=== PATIENT | male | born 1985 | race Caucasian/White ===

== ENCOUNTER 2023-08-27 10:51 | Outpatient (CLI) | payer MEDICARE ==
[2023-08-27 13:24] LABS: H. PYLORIS ANTIGEN STL NEGATIVE (Negative)
== END 2023-08-27 11:00 | disposition home or self-care (01) ==
LOC: LAB.N 10:51
PROVIDERS: ATTEND Physician Assistant Medical
DX: R10.13 Epigastric pain (principal)
CPT/HCPCS: 87338

== ENCOUNTER 2023-10-24 08:34 | Outpatient (CLI) | payer MEDICARE ==
[2023-10-24 12:20] LABS: HCT - HEMATOCRIT 40.9 % (42.0-52.0); HGB - HEMOGLOBIN 13.8 g/dL (14.0-18.0); MEAN CORPUSCULAR HEMOGLOBIN 29.1 pg (27.0-31.0); MEAN CORPUSCULAR HGB CONC 33.7 g/dL (32.0-36.0); MEAN CORPUSCULAR VOLUME 86.3 fL (80.0-94.0); MEAN PLATELET VOLUME 9.4 fL (7.4-11.4); RED BLOOD COUNT 4.74 10^6/uL (4.70-6.10)
[2023-10-24 12:54] LABS: ALBUMIN 4.3 g/dL (3.2-5.5); ALBUMIN/GLOBULIN RATIO 1.5 (1.0-2.2); BILIRUBIN,TOTAL 0.6 mg/dL (0.2-1.0); CALCIUM 9.4 mg/dL (8.5-10.3); CREATININE 0.8 mg/dL (0.6-1.3); CRP - C-REACTIVE PROTEIN 0.5 mg/dL (<0.5); POTASSIUM 4.1 mmol/L (3.5-4.5); TOTAL PROTEIN 7.2 g/dL (6.4-8.9)
[2023-10-24 13:00] LABS: THYROID STIMULATING HORMONE 2.42 uIU/mL (0.34-5.60)
[2023-10-27 16:08] LABS: ANTINUCLEAR ANTIBODIES IFA Negative (.)
== END 2023-10-24 08:35 | disposition home or self-care (01) ==
LOC: LAB.N 08:34
PROVIDERS: ATTEND Family Medicine
DX: R10.9 Unspecified abdominal pain (principal); G93.32 Myalgic encephalomyelitis/chronic fatigue syndrome; G89.29 Other chronic pain
CPT/HCPCS: 36415; 80053; 82150; 83690; 84443; 85027; 86038; 86140

== ENCOUNTER 2023-11-26 11:43 | Emergency (ER) | payer MEDICARE, MEDICAID ==
[2023-11-26 12:24] LABS: BASOPHILS # (AUTO) 0.1 10^3/uL (0.0-0.1); BASOPHILS % (AUTO) 0.8 %; EOSINOPHILS # (AUTO) 0.1 10^3/uL (0.0-0.7); EOSINOPHILS % (AUTO) 1.4 %; HGB - HEMOGLOBIN 14.1 g/dL (14.0-18.0); LYMPHOCYTES # (AUTO) 2.5 10^3/uL (1.5-3.5); LYMPHOCYTES % (AUTO) 25.4 %; MEAN CORPUSCULAR HEMOGLOBIN 29.1 pg (27.0-31.0); MEAN CORPUSCULAR HGB CONC 33.6 g/dL (32.0-36.0); MEAN CORPUSCULAR VOLUME 86.6 fL (80.0-94.0); MEAN PLATELET VOLUME 9.1 fL (7.4-11.4); MONOCYTES # (AUTO) 0.6 10^3/uL (0.0-1.0); MONOCYTES % (AUTO) 6.3 %; NEUTROPHILS # (AUTO) 6.5 10^3/uL (1.5-6.6); PLT - PLATELET COUNT 563 10^3/uL (130-450); RED BLOOD COUNT 4.85 10^6/uL (4.70-6.10); RED CELL DISTRIBUTION WIDTH 13.1 % (12.0-15.0); WHITE BLOOD COUNT 9.9 x10^3/uL (4.8-10.8)
[2023-11-26 12:45] LABS: ALBUMIN 4.2 g/dL (3.2-5.5); ALBUMIN/GLOBULIN RATIO 1.4 (1.0-2.2); BILIRUBIN,TOTAL 0.8 mg/dL (0.2-1.0); CALCIUM 9.2 mg/dL (8.5-10.3); CREATININE 0.8 mg/dL (0.6-1.3); MAGNESIUM 1.9 mg/dL (1.7-2.3); POTASSIUM 3.9 mmol/L (3.5-4.5); TOTAL PROTEIN 7.2 g/dL (6.4-8.9)
[2023-11-26 13:04] LABS: LITHIUM 0.32 mmol/L
--- NOTE | 2023-11-26 13:26 | ED Physician Documentation ---
History of Present Illness - Stated complaint Stated Complaint: OD - Chief complaint Chief Complaint: Neuro - History obtained from History obtained from: Patient - History of Present Illness Timing: Prior to arrival - Additonal information Additional information: Patient is a 38-year-old transgender female presenting to the emergency department with concerns for lithium toxicity. Patient was started at the beginning of the month with lithium as a mood stabilizer as she has not done well in the past with SSRIs. 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 Patient has been on 300 mg twice daily doses of lithium. She has not missed any doses has been compliant with it. For about a week now she started with cramping in her neck and her right arm. She notes she has a history of fibromyalgia and is difficult to tell the symptoms apart. She notes however she developed nausea and vomiting yesterday and has been unable to eat or keep anything down due to the symptoms. She denies any new diarrhea associated with her symptoms.Patient denies taking higher doses of her lithium has been compliant with the medication as prescribed. She not denies being on it in the past. She notes she has chronic neck and back pain as well and her neck pain at this time does feel similar to that. She notes baseline tremors but no worsening tremors at home. No seizure-like activity. PD PAST MEDICAL HISTORY - Past Medical History Past Medical History: No Cardiovascular: None Respiratory: None Neuro: None Endocrine/Autoimmune: None GI: None : None HEENT: None Psych: Bipolar disorder, Schizophrenia, ADD/ADHD, Other Musculoskeletal: None Derm: None Other Past Medical History: pt unsure of which mental health problem she has - Past Surgical History Past Surgical History: Yes General: Cholecystectomy - Present Medications Home Medications: Ambulatory Orders Medication Instructions Recorded Confirmed [place] Carbonate 300 BID 11/26/23 ONDANSETRON ODT Prepack 2 [ZOFRAN 4 mg TL Q6H #10 tablet 11/26/23 ODT Prepack 2] Pregabalin 50 DAILY 11/26/23 estradioL [Estradiol] 1 ml 11/26/23 - Allergies Allergies/Adverse Reactions: Allergies Allergy/AdvReac Type Severity Reaction Status Date / Time amoxicillin Allergy Hives Verified 11/26/23 12:32 - Social History Does the pt smoke?: No Smoking Status: Never smoker PD ED PE NORMAL - Vitals Vital signs reviewed: Yes - General General: Alert and oriented X 3 - HEENT HEENT: Atraumatic - Neck Neck: Supple, no meningeal sign (Reproducible tenderness but full range of motion no spinous process tenderness reproducible tenderness along the muscles and bilateral upper shoulders on examination. Full passive range of motion of upper extremities intact.) - Cardiac Cardiac: RRR, No murmur, No gallop, No rub - Respiratory Respiratory: No respiratory distress, Clear bilaterally - Abdomen Abdomen: Normal bowel sounds, Soft, Non tender, Non distended - Male Male : Deferred - Rectal Rectal: Deferred - Back Back: No CVA TTP - Derm Derm: Normal color, No rash - Extremities Extremities: No deformity - Neuro Neuro: Alert and oriented X 3 Eye Opening: Spontaneous Motor: Obeys Commands Verbal: Oriented GCS Score: 15 Results - Vitals Vitals: Vital Signs - 24 hr 11/26/23 11/26/23 11/26/23 11:46 14:32 16:00 Temperature 36.9 C 36.7 C Heart Rate 81 72 78 Respiratory 18 16 14 Rate Blood Pressure 141/80 H 129/72 148/85 H O2 Saturation 100 99 98 Oxygen O2 Source Room air - Labs Labs: Laboratory Tests 11/26/23 11/26/23 11/26/23 12:12 12:12 12:12 WBC 9.9 RBC 4.85 Hgb 14.1 Hct 42.0 MCV 86.6 MCH 29.1 MCHC 33.6 RDW 13.1 Plt Count 563 H MPV 9.1 Neut # (Auto) 6.5 Lymph # (Auto) 2.5 [place] # (Auto) 0.6 Eos # (Auto) 0.1 Baso # (Auto) 0.1 Absolute Nucleated RBC 0.00 Nucleated RBC % 0.0 Sodium 137 Potassium 3.9 Chloride 105 Carbon Dioxide 27 Anion Gap 5.0 L BUN 8 Creatinine 0.8 Estimated GFR (MDRD) 109 Glucose 86 Calcium 9.2 Magnesium 1.9 Total Bilirubin 0.8 AST 39 ALT 55 Alkaline Phosphatase 66 Total Creatine Kinase Total Protein 7.2 Albumin 4.2 Globulin 3.0 Albumin/Globulin Ratio 1.4 TSH Urine Color Urine Clarity Urine pH Ur Specific [place] Urine Protein Urine Glucose (UA) Urine Ketones Urine Occult Blood Urine Nitrite Urine Bilirubin Urine Urobilinogen Ur Leukocyte Esterase Ur Microscopic Review Urine Culture Comments Nasal Adenovirus (PCR) Nasal B. parapertussis DNA (PCR) Nasal Coronavir 229E PCR Nasal Coronavir HKU1 PCR Nasal Coronavir NL63 PCR Nasal Coronavir OC43 PCR Nasal Enterovir/Rhinovir PCR Nasal Influenza B PCR Nasal Influenza A PCR Nasal Parainfluen 1 PCR Nasal Parainfluen 2 PCR Nasal Parainfluen 3 PCR Nasal Parainfluen 4 PCR Nasal RSV (PCR) Nasal B.pertussis DNA PCR Nasal C.pneumoniae (PCR) [place] Human Metapneumo PCR Nasal M.pneumoniae (PCR) Nasal SARS-CoV-2 (PCR) Last Dose Date UNK Last Dose Time UNK [place] 0.32 11/26/23 11/26/23 11/26/23 12:12 12:12 12:55 WBC RBC Hgb Hct MCV MCH MCHC RDW Plt Count MPV Neut # (Auto) Lymph # (Auto) [place] # (Auto) Eos # (Auto) Baso # (Auto) Absolute Nucleated RBC Nucleated RBC % Sodium Potassium Chloride Carbon Dioxide Anion Gap BUN Creatinine Estimated GFR (MDRD) Glucose Calcium Magnesium Total Bilirubin AST ALT Alkaline Phosphatase Total Creatine Kinase 54 Total Protein Albumin Globulin Albumin/Globulin Ratio TSH 1.37 Urine Color Urine Clarity Urine pH Ur Specific [place] Urine Protein Urine Glucose (UA) Urine Ketones Urine Occult Blood Urine Nitrite Urine Bilirubin Urine Urobilinogen Ur Leukocyte Esterase Ur Microscopic Review Urine Culture Comments Nasal Adenovirus (PCR) NOT DETECTED Nasal B. parapertussis DNA (PCR) NOT DETECTED Nasal Coronavir 229E PCR NOT DETECTED Nasal Coronavir HKU1 PCR NOT DETECTED Nasal Coronavir NL63 PCR NOT DETECTED Nasal Coronavir OC43 PCR NOT DETECTED Nasal Enterovir/Rhinovir PCR NOT DETECTED Nasal Influenza B PCR NOT DETECTED Nasal Influenza A PCR NOT DETECTED Nasal Parainfluen 1 PCR NOT DETECTED Nasal Parainfluen 2 PCR NOT DETECTED Nasal Parainfluen 3 PCR NOT DETECTED Nasal Parainfluen 4 PCR NOT DETECTED Nasal RSV (PCR) NOT DETECTED Nasal B.pertussis DNA PCR NOT DETECTED Nasal C.pneumoniae (PCR) NOT DETECTED [place] Human Metapneumo PCR NOT DETECTED Nasal M.pneumoniae (PCR) NOT DETECTED Nasal SARS-CoV-2 (PCR) NOT DETECTED Last Dose Date Last Dose Time [place] 11/26/23 15:56 WBC RBC Hgb Hct MCV MCH MCHC RDW Plt Count MPV Neut # (Auto) Lymph # (Auto) [place] # (Auto) Eos # (Auto) Baso # (Auto) Absolute Nucleated RBC Nucleated RBC % Sodium Potassium Chloride Carbon Dioxide Anion Gap BUN Creatinine Estimated GFR (MDRD) Glucose Calcium Magnesium Total Bilirubin AST ALT Alkaline Phosphatase Total Creatine Kinase Total Protein Albumin Globulin Albumin/Globulin Ratio TSH Urine Color DARK YELLOW Urine Clarity CLEAR Urine pH 5.5 Ur Specific [place] >=1.030 H Urine Protein TRACE Urine Glucose (UA) NEGATIVE Urine Ketones 15 H Urine Occult Blood NEGATIVE Urine Nitrite NEGATIVE Urine Bilirubin MODERATE H Urine Urobilinogen 1 (NORMAL) Ur Leukocyte Esterase NEGATIVE Ur Microscopic Review NOT INDICATED Urine Culture Comments NOT INDICATED Nasal Adenovirus (PCR) Nasal B. parapertussis DNA (PCR) Nasal Coronavir 229E PCR Nasal Coronavir HKU1 PCR Nasal Coronavir NL63 PCR Nasal Coronavir OC43 PCR Nasal Enterovir/Rhinovir PCR Nasal Influenza B PCR Nasal Influenza A PCR Nasal Parainfluen 1 PCR Nasal Parainfluen 2 PCR Nasal Parainfluen 3 PCR Nasal Parainfluen 4 PCR Nasal RSV (PCR) Nasal B.pertussis DNA PCR Nasal C.pneumoniae (PCR) [place] Human Metapneumo PCR Nasal M.pneumoniae (PCR) Nasal SARS-CoV-2 (PCR) Last Dose Date Last Dose Time [place] [facility] Medical Decision Making - ED course Complexity details: reviewed old records, reviewed results ED course: Patient is a 38-year-old transgender female presenting to the emergency department with concerns with lithium toxicity sent over by PCP. Patient has been on lithium for about 1 month now and has been having generalized bodyaches and then nausea and vomiting symptoms. Patient denies any fevers no heart palpitations no diarrhea symptoms. Patient has been taking gabapentin for fibromyalgia symptoms as well. He notes he has chronic neck and back pain this seems worse today than usual though. Patient denies any fevers or chills associated with symptoms. Vitals on arrival are reassuring. Physical exam sh ows reproducible neck pain and shoulder pain however strength intact and passive range intact in upper and lower extremities. Labs here in the emergency department showed no signs of lithium toxicity. Mild hypokalemia but no other acute findings. Reevaluated patient and she notes symptoms of bodyaches are persistent and she is now reporting darker blood in her urine. She notes she has not had her symptoms addressed. Discussed with patient despite Zofran and being p.o. challenged she would still like IV fluids. Will give small dose of IV fluids while urine analysis is running. UA shows no signs of UTI. Mild signs of dehydration with high specific gravity but no other acute findings. Updated patient on reassuring findings. She will follow-up with her PCP in outpatient setting and informed of low dosing of lithium not to threshold level and reassuring findings of no lithium toxicity. Discussed with patient symptoms most likely secondary to her fibromyalgia pain. Patient is in agreement with this and feels safe to go home. She was given strict return precautions. Departure - Departure Disposition: Home, Self Care Clinical Impression: Occasional tremors, Generalized body aches, Dehydration, mild Condition: Good Prescriptions: ONDANSETRON ODT Prepack 2 [ZOFRAN ODT Prepack 2] 4 mg TL Q6H #10 tablet Comments: You were seen here in this emergency department for concerns for lithium toxicity however your workup here in the emergency department was reassuring I have sent Zoan home with your symptoms to ensure if repetitive nausea and vomiting returns you should return to the emergency department. Your symptoms resolved while you were here in the emergency department you should drink lots of fluids when you return home and follow-up with your PCP to ensure reassuring lithium levels and inform PCP that you are under dosed for effective treatment per lithium level labs. Forms: PCP List
[2023-11-26] MEDS: KETOROLAC 15 MG/ML VIAL IM STA (13:36)
[2023-11-26 14:47] LABS: B. PARAPERTUSSIS- RESP PCR PAN NOT DETECTED; B. PERTUSSIS- RESP PCR PANEL NOT DETECTED; C. PNEUMONIAE- RESP PCR PANEL NOT DETECTED; CORONAVIRUS 229E-RESP PCR NOT DETECTED; CORONAVIRUS HKU1-RESP PCR NOT DETECTED; CORONAVIRUS NL63-RESP PCR NOT DETECTED; CORONAVIRUS OC43-RESP PCR NOT DETECTED; HUMAN METAPNEUMOVIRUS NOT DETECTED; INFLUENZA A- RESP PCR PANEL NOT DETECTED; INFLUENZA B - RESP PCR PANEL NOT DETECTED; M. PNEUMONIAE- RESP PCR PANEL NOT DETECTED; PARAINFLUENZA VIRUS 1 NOT DETECTED; PARAINFLUENZA VIRUS 2 NOT DETECTED; PARAINFLUENZA VIRUS 3 NOT DETECTED; PARAINFLUENZA VIRUS 4 NOT DETECTED; RHINOVIRUS/ENTEROVIRUS NOT DETECTED; RSV- RESP PCR PANEL NOT DETECTED; SARS-CoV-2 -RESP PCR PANEL NOT DETECTED
[2023-11-26] MEDS: METOCLOPRAMIDE 10 MG/2 ML VIAL IVP STA (15:10)
[2023-11-26] MEDS: diphenhydrAMINE INJ 50 MG/ML VIAL IVP STA (15:10)
[2023-11-26] MEDS: SODIUM CHLORIDE 0.9% 1,000 ML IV STA (15:36)
[2023-11-26 16:00] LABS: BILIRUBIN,URINE MODERATE (NEGATIVE); GLUCOSE, URINE (UA) NEGATIVE (NEGATIVE); KETONES,URINE (UA) 15 mg/dL (NEGATIVE); LEUKOCYTE ESTERASE, URINE NEGATIVE (NEGATIVE); NITRITE,URINE NEGATIVE (NEGATIVE); OCCULT BLOOD,URINE NEGATIVE (NEGATIVE); PH,URINE 5.5 PH (5.0-7.5); PROTEIN,URINE TRACE mg/dL (NEGATIVE); UROBILINOGEN,URINE 1 (NORMAL) E.U./dL (NORMAL)
[2023-11-26 16:04] LABS: CLARITY,URINE CLEAR (CLEAR)
[2023-11-26 17:02] VITALS: BP 125/61; O2SAT 99
== END 2023-11-26 16:54 | disposition home or self-care (01) ==
LOC: ED 11:43
DX: R25.1 Tremor, unspecified (principal); R52 Pain, unspecified; E86.0 Dehydration; F20.9 Schizophrenia, unspecified; F64.0 Transsexualism
CPT/HCPCS: 36415; 80053; 80178; 81003; 82550; 83735; 84443; 85025; 87633; 93005; 96374; 96375; 99284; J1200; J2765; 81001; 87086